=== PATIENT | female | born 1990 | race Caucasian/White ===

== ENCOUNTER 2021-05-12 17:13 | Emergency (ER) | payer OTHER, SELFPAY ==
[2021-05-12 17:41] VITALS: BP 153/106; PULSE 99; RESP 18; TEMP 37.2; O2SAT 100; BMI 26.6
--- NOTE | 2021-05-12 17:52 | DI.RAD.S_ITS ---
PROCEDURE: XR KNEE LT 3V INDICATIONS: left knee pain and swelling TECHNIQUE: 3 views of the knee were acquired. COMPARISON: None. FINDINGS: Bones: No fractures or dislocations. No suspicious bony lesions. Soft tissues: Moderate knee joint effusion. No suspicious soft tissue calcifications. IMPRESSION: 1. Knee joint effusion. 2. No acute fracture. No osseous lesion. If symptoms and/or clinical suspicion for pathology persist, further assessment with repeat, or advanced imaging (e.g., CT, MRI, or bone scan) may be helpful for further assessment. Dictated by: Lotus Kan M.D. on 05/12/2021 at 18:33 Approved by: Lotus Kan M.D. on 05/12/2021 at 18:33
--- NOTE | 2021-05-12 17:52 | DI.US.S_ITS ---
PROCEDURE: US PERIPH VENOUS LOW EXTREM LT INDICATIONS: left knee/distal leg pain and swelling. No injury TECHNIQUE: Real-time imaging, as well as color and pulse Doppler interrogation, were performed of the lower extremity deep veins from the inguinal ligament to the popliteal fossa. COMPARISON: None. FINDINGS: The common femoral, femoral and popliteal veins are normally compressible, and free of intraluminal thrombus. Color and pulse Doppler demonstrate normal phasic intraluminal flow. There is normal augmentation response to distal compression maneuver. IMPRESSION: No evidence of deep venous thrombosis, left lower extremity Approved by: Tristan Fraser M.D. on 05/12/2021 at 17:35
[2021-05-12 20:14] VITALS: BP 140/84; PULSE 85; O2SAT 99
--- NOTE | 2021-05-12 20:35 | ED.EXTPRO ---
HPI - Extremity Problem General Chief complaint: Extremity Problem,Nontraumatic Stated complaint: swollen knee and pain Time Seen by Provider: 05/12/21 20:30 Source: patient Mode of arrival: Wheelchair History of Present Illness HPI Narrative: Patient is a 30-year-old female who presents with left knee pain and swelling ongoing for the last 2 days but worse over last 24 hours. She denies any injury. 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 She has some swelling no fever or chills. She does take control but no prior history of DVT she traveled anywhere and no recent immobilization. Related Data Allergies Allergy/AdvReac Type Severity Reaction Status Date / Time morphine Allergy Unknown Verified 05/12/21 21:25 Review of Systems Review of Systems Narrative: GENERAL: Denies chills,fever HEENT: Denies throat pain RESPIRATORY: Denies dyspnea, cough, wheezing CARDIOVASCULAR: Denies chest pain, palpitations GASTROINTESTINAL: Denies nausea, vomiting MUSCULOSKELETAL: See HPI SKIN: No rash, no laceration, no pruritus NEUROLOGIC: Denies weakness, dizziness, headache, numbness 8 point review of systems is negative except for those stated above and HPI Patient History Social History Smoking Status: Never smoker Smoking Status: Never smoker alcohol intake frequency: a few times a month Substance Use Type: does not use Exam Initial Vital Signs Initial Vital Signs: Vital Signs Temperature 99.0 F 05/12/21 17:41 Pulse Rate 99 H 05/12/21 17:41 Respiratory Rate 18 05/12/21 17:41 Blood Pressure 153/106 H 05/12/21 17:41 Pulse Oximetry 100 05/12/21 17:41 GENERAL: Well-appearing, well-nourished and in no acute distress. CARDIOVASCULAR: peripheral pulses in tact, cap refill <2 sec RESPIRATORY: No respiratory distress, speaks in full sentences without difficulty EXTREMITIES: Normal range of motion, no clubbing or edema. Neurovascularly intact. Left knee swelling mild tenderness on the medial side knee is stable distal pedal pulse intact no redness no calf pain NEUROLOGICAL: Cranial nerves II through XII grossly intact. Normal gait and speech. SKIN: Warm, dry, no petechiae, no rashes or lesions. Course Orders Ordered: ED Orders 05/12/21 17:52 US periph venous low extrem lt Stat XR knee LT 3V Stat Discontinued Medications Ketorolac Tromethamine (Ketorolac 30 Mg/Ml Vial) 30 mg IM NOW ONE Stop: 05/12/21 21:11 Last Admin: 05/12/21 21:25 Dose: 30 mg Documented by: HGELLEN Vital Signs Vital signs: Vital Signs - 8 hr 05/12/21 20:14 05/12/21 21:32 Pulse Rate 85 87 Blood Pressure 140/84 146/74 H Pulse Oximetry 99 99 MDM - Extremity (Nontraumatic) Imaging Data Extremity x-ray #1: Radiologist's Impression: PROCEDURE:? XR KNEE LT 3V ? INDICATIONS:? left knee pain and swelling ? TECHNIQUE:? 3 views of the knee were acquired.? ? COMPARISON:? None. ? FINDINGS:? ? Bones:? No fractures or dislocations.? No suspicious bony lesions.? ? Soft tissues:? Moderate knee joint effusion.? No suspicious soft tissue calcifications.? ? ? IMPRESSION:? 1. Knee joint effusion. 2. No acute fracture. No osseous lesion. If symptoms and/or clinical suspicion for pathology persist, further assessment with repeat, or advanced imaging (e.g., CT, MRI, or bone scan) may be helpful for further assessment. ? ? Dictated by: Lotus Kan M.D. on 05/12/2021 at 18:33 ? US - DVT: Radiologist's Impression: PROCEDURE:? US PERIPH VENOUS LOW EXTREM LT ? INDICATIONS:? left knee/distal leg pain and swelling. No injury ? TECHNIQUE:? Real-time imaging, as well as color and pulse Doppler interrogation, were performed of the lower extremity deep veins from the inguinal ligament to the popliteal fossa.? ? COMPARISON:? None. ? FINDINGS:? The common femoral, femoral and popliteal veins are normally compressible, and free of intraluminal thrombus.? Color and pulse Doppler demonstrate normal phasic intraluminal flow.? There is normal augmentation response to distal compression maneuver. ? ? IMPRESSION:? No evidence of deep venous thrombosis, left lower extremity ? ? ? Approved by: Tristan Fraser M.D. on 05/12/2021 at 17:35? [facility] Narrative Medical decision making narrative: Mild knee swelling without injury possible strain. There is no erythema no evidence of DVT calf is soft swelling and pain not consistent with DVT. She is given immobilizer and crutches. Discharge Plan Departure Patient Disposition: Home Clinical Impression: Acute pain of left knee Instructions: DI for Knee Sprain, DI for Knee Pain Activity Restrictions/Additional Instructions: *You have been diagnosed with left knee pain *What to do: At this time x-ray and ultrasound do not show any abnormality. I recommend icing elevating as often as possible. Use crutches as needed recommend knee brace will active during the day as well. You may need repeat ultrasound in 1 week if having worsening swelling. You may also need outpatient MRI if this continues. *Continue to take medications as directed Ibuprofen 800 mg every 8 hours if needed for [id number] pain *Follow up with your primary care provider in 2-3 days or call [phone] *Return to ER if you should have creasing swelling, redness, pain, inability to bear weight or any new, worsening or concerning symptoms Stand Alone Forms: Work Release Note
[2021-05-12] MEDS: KETOROLAC 30 MG/ML VIAL IM (21:25)
[2021-05-12 21:32] VITALS: BP 146/74; PULSE 87; O2SAT 99
== END 2021-05-12 21:47 | disposition home or self-care (01) ==
PROVIDERS: Emergency Provider Emergency Medicine
DX: M25.562 Pain in left knee (principal)
CPT/HCPCS: 73562; 93971; 96372; 99284; J1885